=== PATIENT | female | born 1975 | race African-American/Black ===

== ENCOUNTER 2021-03-04 03:45 | Emergency (ER) | payer SELFPAY ==
[~2021-03-04] VITALS: Ht 175.3 cm; Wt 64.5 kg
[2021-03-04 05:00] VITALS: BP 118/64
[2021-03-04] MEDS ORDERED: ACETAMINOPHEN 500 MG TABLET PO ONE (06:00)
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
[2021-03-04] MEDS ORDERED: DICL50TA2 PO (06:31)
[2021-03-04] MEDS ORDERED: NEOM10SO7 EACH EAR (06:31)
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
== END 2021-03-04 06:45 | disposition home or self-care (01) ==
LOC: ER 03:45
DX: S01.511A Laceration without foreign body of lip, initial encounter (principal); H60.91 Unspecified otitis externa, right ear; R51.9 Headache, unspecified; F17.200 Nicotine dependence, unspecified, uncomplicated; Z88.8 Allergy status to other drugs, medicaments and biological substances; Y08.89XA Assault by other specified means, initial encounter; Y93.89 Activity, other specified; Y92.89 Other specified places as the place of occurrence of the external cause; Y99.8 Other external cause status
CPT/HCPCS: 70450; 70486; 99284-25